=== PATIENT | male | born 1995 | race Caucasian/White ===

== ENCOUNTER 2017-11-28 23:25 | Emergency (ER) | END 2017-11-29 02:40 | disposition home or self-care (01) ==

== ENCOUNTER 2018-01-03 15:04 | Emergency (ER) | END 2018-01-03 16:00 | disposition home or self-care (01) ==

== ENCOUNTER 2018-01-05 12:17 | Emergency (ER) | END 2018-01-05 13:39 | disposition home or self-care (01) ==